=== PATIENT | male | born 1975 | race Two or more races ===

== ENCOUNTER 2017-06-11 11:50 | Day surgery (SDC) | payer BC ==
[2017-06-11] VITALS (9 sets, daily range): BP systolic 107–129; BP diastolic 56–70
[~2017-06-11] VITALS: Ht 177.8 cm; Wt 86.2 kg
[~2017-06-11 11:50] MED LIST: ceFAZolin 1gm in D5W 55ml IVP ONE; celeBREX 200mg Cap **SURGERY PATIENTS ONLY ORAL ONE; oxyCONTIN 20mg tab ORAL ONE
[2017-06-11] MEDS ORDERED: NKM (12:26)
[2017-06-11] MEDS ORDERED: Lidocaine 1% Plain 30 ml INJ ONE (12:49)
[2017-06-11] MEDS ORDERED: Bupivacaine w/Epi 0.5% 30ml Vial INJ ONE (12:49)
[2017-06-11] MEDS ORDERED: Bacitracin 50000 Units Vial ONE (12:49)
[2017-06-11] MEDS ORDERED: LR 1000ml 1,000 ML IVLG SCH (13:54)
--- NOTE | 2017-06-11 13:54 | Anethesia Preoperative Eval ---
Anesthesia Pre-op PMH/ROS General Date of Evaluation: Jun 11, 2017 Time of Evaluation: 13:51 Anesthesiologist: Cecilio ASA Score: ASA 2 Mallampati Score Class I : Soft palate, uvula, fauces, pillars visible Class II: Soft palate, uvula, fauces visible Class III: Soft palate, base of uvula visible Class IV: Only hard plate visible Mallampati Classification: Class II Surgeon: Peggy Diagnosis: R thumb Fx. Surgical Procedure: Closed reduction with pinning Anesthesia History: none Social History: current smoker Family History: no anesthesia problems Allergies: Coded Allergies: No Known Allergies (Unverified , 06/11/17) Medications: see eMAR Past Medical History Cardiovascular: Denies: CAD, HTN, NC, arrhythmia, other, valve dz Pulmonary: Denies: COPD, CECELIA, asthma, other Gastrointestinal/Genitourinary: Reports: GERD - mild, Denies: CRI, ESRD, other Neurologic/Psychiatric: Denies: CVA, TIA, dementia, depression/anxiety, other Endocrine: Denies: DM, hypothyroidism, other, steroids HEENT: Denies: [place] (L), [place] (R), cataract (L), cataract (R), glaucoma, other Hematology/Immune: Denies: DVT, anemia, bleeding disorder, other Musculoskeletal/Integumentary: Denies: DDD, DJD, OA, RA, edema, other PMH Narrative: as above PSxH Narrative: Septoplasty Anesthesia Pre-op Phys. Exam Physician Exam Last Vital Signs Date Time Temp Pulse Resp B/P Pulse Ox O2 Delivery O2 Flow Rate FiO2 06/11/17 12:13 97.8 57 18 108/57 97 Room Air Constitutional: NAD Neurologic: CN 2-12 intact Cardiovascular: RRR, no M/R/G Respiratory: CTA Gastrointestinal: S/NT/ND Airway Exam Mallampati Score: Class II MO: full Neck: flexible ROM: full Teeth: intact Dentures: no lower, no upper Anesthesia Pre-op A/P Labs see chart Studies Pre-op Studies: EKG - NSR Risk Assessment & Plan Assessment: ASA 2 Plan: GA with LMA PONV prevention Status Change Before Surgery: No Pre-Antibiotics Drug: Ancef 1 gr. Given Within 1 Hr of Incision: Yes Time Given: 14:15 ESEQUIEL BOWSER M.D. Jun 11, 2017 13:54
[2017-06-11] MEDS ORDERED: fentaNYL 100 mcg/2 mL IV ONE (14:00)
[2017-06-11] MEDS ORDERED: Ketorolac 30mg Inj ONE (14:00)
[2017-06-11] MEDS ORDERED: Metoclopramide 10mg/2ml Inj IVP PRN (14:00)
[2017-06-11] MEDS ORDERED: Midazolam 2mg/2ml Inj ONE (14:00)
[2017-06-11] MEDS ORDERED: Ketorolac 30mg Inj IV PRN (14:00)
[2017-06-11] MEDS ORDERED: LR 1000ml ONE (14:00)
[2017-06-11] MEDS ORDERED: Hydromorphone 0.5mg/0.5ml inj IVP PRN (14:00)
[2017-06-11] MEDS ORDERED: NS Irrig 1000ml ONE (14:00)
[2017-06-11] MEDS ORDERED: Propofol 10mg/ml 20ml IV ONE (14:00)
[2017-06-11] MEDS ORDERED: Sterile Water Irrig 1000ml IRRIG ONE (14:00)
--- NOTE | 2017-06-11 14:26 | Pre-Procedure Note/Attestation ---
Pre-Procedure Note/Attestation Complete Prior to Procedure Planned Procedure: right Procedure Narrative: Thumb metacarpal ORIF Indications for Procedure Pre-Operative Diagnosis: right thumb metacarpal fracture Attestation I attest that I discussed the nature of the procedure; its benefits; risks and complications; and alternatives (and the risks and benefits of such alternatives ), prior to the procedure, with the patient (or the patient's legal marketing sales representative). I attest that, if there was a reasonable possibility of needing a blood transfusion, the patient (or the patient's legal marketing sales representative) was given the [facility] standardized written summary, pursuant to the [place] Blood Safety Act ([place] Health and Safety Code # 1645, as amended). I attest that I re-evaluated the patient just prior to the surgery and that there has been no change in the patient's H&P, except as documented below: BELEN GALVAN Jun 11, 2017 14:26
--- NOTE | 2017-06-11 14:29 | Brief Operative Note ---
Immediate Post Operative Note Operative Note Pre-op Diagnosis: right thumb metacarpal fracture Post-op Diagnosis: same as pre-op Surgeon: ike Anesthesiologist: Iggy Anesthesia: general Specimen: none Complications: none Condition: stable Estimated Blood Loss: none Drains: none Implant(s) used?: Yes - 0.6mm k BELEN Del Real Jun 11, 2017 14:29
[2017-06-11] MEDS ORDERED: Bupivacaine 0.5% Inj 30 ml vial INJ ONE (14:46)
--- NOTE | 2017-06-11 15:14 | Immediate Post-Op Evaluation ---
Immediate Post-Op Evalulation Immediate Post-Op Evalulation Procedure: R thumb Fx closed reduction with pinning Date of Evaluation: Jun 11, 2017 Time of Evaluation: 15:13 IV Fluids: 700 Blood Products: none Estimated Blood Loss: none Urinary Output: none Blood Pressure Systolic: 116 Blood Pressure Diastolic: 58 Pulse Rate: 62 Respiratory Rate: 20 O2 Sat by Pulse Oximetry: 99 Temperature (Fahrenheit): 97.5 Pain Score (1-10): 1 Nausea: No Vomiting: No Complications none Patient Status: reacts, patent, none Hydration Status: adequate ESEQUIEL BOWSER M.D. Jun 11, 2017 15:14
--- NOTE | 2017-06-11 15:16 | 48 Hour Post Anesthesia Eval ---
Post Anesthesia Evaluation Procedure: R thumb Fx closed reduction with pinning Date of Evaluation: Jun 11, 2017 Time of Evaluation: 16:10 Blood Pressure Systolic: 108 0: 62 Pulse Rate: 58 Respiratory Rate: 18 Temperature (Fahrenheit): 97.6 O2 Sat by Pulse Oximetry: 97 Airway: patent Nausea: No Vomiting: No Pain Intensity: 2 Hydration Status: adequate Cardiopulmonary Status: stable Mental Status/LOC: patient returned to baseline Follow-up Care/Observations: n/a Post-Anesthesia Complications: none Follow-up care needed: ready to discharge ESEQUIEL BOWSER M.D. Jun 11, 2017 15:15
[2017-06-11] MEDS ORDERED: HYDROmorphone 1mg/ml Carpuject SUBQ PRN (17:01)
[2017-06-11] MEDS ORDERED: D5 1/2NS 1,000 ML IV SCH (17:01)
[2017-06-11] MEDS ORDERED: DiphenhydrAMINE 50mg/ml Inj IVP PRN (17:01)
[2017-06-11] MEDS ORDERED: Tylenol #3 tab (300mg/30mg) ORAL PRN (17:01)
[2017-06-11] MEDS ORDERED: Norco 5mg/325mg tab ORAL PRN (17:01)
--- NOTE | 2017-06-11 23:01 | Operative Note - Dictated ---
DATE OF OPERATION: 06/11/2017 PREOPERATIVE DIAGNOSIS: Right thumb base of the metacarpal fracture with displacement. POSTOPERATIVE DIAGNOSIS: Right thumb base of the metacarpal fracture with intraarticular extension with displacement. PROCEDURE: 1. Right closed reduction and percutaneous pinning of the articular portion of the base of the thumb CMC joint. 2. Right thumb closed reduction of the metaphyseal portion of the fracture with two 0.62 mm K-wires. SURGEON: Srinivasa Woods M.D. [employer] OPERATOR: None. ANESTHESIOLOGIST: Milton Hernandes M.D. ANESTHESIA: General LMA anesthesia. EBL: Less than 20 mL. COMPLICATIONS: None. BRIEF HISTORY: The patient is a pleasant 41-year-old gentleman who sustained injury to his right thumb. He had an immediate onset of the pain in the right thumb. After full discussion of the risks and benefits of the surgery and complications associated with it including infection, bleeding, neurovascular complication, possibility of malunion and nonunion, possibility of need for further surgery, and absolute need to remove the K-wires in the office down the line, he opted for surgical treatment as described above. OPERATIVE PROCEDURE: The patient was brought to the operating room table and was placed supine. All pressure points were well padded. General LMA anesthesia was induced. The right hand was prepped and draped in the usual sterile fashion, and the image intensifier was brought in. The fracture was visualized. The fracture appeared to be intraarticular. Therefore, initially with traction and gentle manipulation, the articular portion of the fracture was reduced and a single K-wire was placed from radial to ulnar side to stabilize that. Subsequently, the metaphyseal portion was reduced anatomically and 2 K-wires were placed from distal metaphyseal into the proximal metaphyseal region to reduce the intraarticular Hooks fracture. This provided excellent AP, lateral, oblique views and held the fracture in excellent position. At this point, the final x-rays were obtained on AP and lateral and oblique, and appeared to be in excellent position. K-wires were cut and bent, and covers were placed over the K-wire for protection. Sterile dressing was applied, and a thumb spica splint was applied and the patient was awakened and was taken to recovery room in stable condition. All instrument counts and lap counts were correct. Srinivasa Tevin Woods DR: RENE JOB#: [id number] CC:
== END 2017-06-11 16:45 | disposition home or self-care (01) ==
LOC: SUR 11:50
DX: S62.231A Other displaced fracture of base of first metacarpal bone, right hand, initial encounter for closed fracture (principal); S62.521A Displaced fracture of distal phalanx of right thumb, initial encounter for closed fracture; X58.XXXA Exposure to other specified factors, initial encounter; Y92.89 Other specified places as the place of occurrence of the external cause; Y99.9 Unspecified external cause status; K21.9 Gastro-esophageal reflux disease without esophagitis; F17.210 Nicotine dependence, cigarettes, uncomplicated
CPT/HCPCS: 26650; 26756; 73120; 76000; J0690; J1885; J2250; J2405; J2704; J3010; J3490; J7120; 94003; 94150